=== PATIENT | female | born 1985 | race Two or more races ===

== ENCOUNTER 2017-09-04 18:27 | Emergency (ER) | payer SELFPAY ==
--- NOTE | 2017-09-04 19:55 | ER Document Report ---
HPI - HPI Pain Level: 5 Notes: Patient is a 32-year-old female with no significant past medical history presents to the ED complaining of left ear pain that radiates down into her left jaw and left neck on occasion 2-3 days. Patient states that her left ear hurts to touch as well. She has not noticed any purulent discharge. Patient states that she is still eating and drinking without difficulties. She is urinating normally and having normal bowel movements. She denies any drug allergies, smoking, or IV drug use. No other concerns or complaints at this time. Denies any headache, fever, head injury, neck pain, tinnitus, dizziness, URI, sore throat, chest pain, palpitations, syncope, cough, shortness of breath , wheeze, dyspnea, abdominal pain, nausea/vomiting/diarrhea, urinary retention, dysuria, hematuria, loss of control of bowel or bladder, numbness/tingling, saddle anesthesia, muscle paralysis/weakness, or rash. - ROS Systems Reviewed and Negative: Yes All other systems reviewed and negative Past Medical History - Social History Smoking Status: Unknown if Ever Smoked Chew tobacco use (# tins/day): No Frequency of alcohol use: Occasional Drug Abuse: None Family History: Reviewed & Not Pertinent Patient has suicidal ideation: No Patient has homicidal ideation: No Pulmonary Medical History: Reports: Hx Asthma Renal/ Medical History: Denies: Hx Peritoneal Dialysis Past Surgical History: Reports: Hx Orthopedic Surgery - right hand surgery - Immunizations Immunizations up to date: No Vertical Provider Document - CONSTITUTIONAL Agree With Documented VS: Yes Notes: PHYSICAL EXAMINATION: GENERAL: Well-appearing, well-nourished and in no acute distress. A&Ox4. Answers questions appropriately. Moves comfortably w/o notable distress HEAD: Atraumatic, normocephalic. EYES: Pupils equal round and reactive to light, extraocular movements intact, sclera anicteric, conjunctiva are normal. ENT: Lt EAC mildly erythemic and tender to palp. + tragus tenderness to palp. No mastroid tenderness or erythema/swelling. Rt EAC wnl. TM's intact b/l without erythema, fluid, or perforation. Nares patent and without discharge. oropharynx no erythema without exudates. No tonsilar hypertrophy without erythema or exudate. No palatine shift. Uvula midline. No tongue protrusion. No drooling, hoarseness, or airway compromise. Moist mucous membranes. No sinus tenderness. Mouth: no dental tenderness, abscess, or purulence. NECK: Normal range of motion, supple without lymphadenopathy. No rigidity/ meningismus. LUNGS: Breath sounds clear to auscultation bilaterally and equal. No wheezes rales or rhonchi. No retractions HEART: Regular rate and rhythm without murmurs, rubs, gallops. ABDOMEN: Soft, nontender, nondistended abdomen. No guarding, no rebound. No masses appreciated. Normal bowel sounds present. No CVA tenderness bilaterally. No hepatosplenomegaly. NEUROLOGICAL: Normal speech, normal gait. Normal sensory, motor exams PSYCH: Normal mood, normal affect. SKIN: Warm, Dry, normal turgor, no rashes or lesions noted. - INFECTION CONTROL TRAVEL OUTSIDE OF THE [place] IN LAST 30 DAYS: No Course - Re-evaluation Re-evalutation: 09/04/17 19:52 Patient is an afebrile, well-hydrated, 32-year-old female who presents to the ED with a mild acute otitis externa of the left ear and otalgia suspect component of eustachian tube dysfunction. Vitals are acceptable. PE is otherwise unremarkable. I will send her home with a prescription for antibiotic /steroid eardrops. Recommend conservative measures with use of Sudafed as well. Low suspicion for any meningitis, sepsis, peritonsillar/pharyngeal abscess, respiratory compromise, Maxim's, mastoiditis, or other emergent systemic condition at this time. Patient is aware this condition can change from initial presentation and she needs to monitor symptoms closely. Recheck with your PCM in 2-3 days. Return to the ED with any worsening/concerning symptoms otherwise as reviewed in discharge. Patient is in agreement. - Vital Signs Vital signs: Temp Pulse Resp BP Pulse Ox 98.5 F 72 16 126/79 H 97 09/04/17 18:36 09/04/17 18:36 09/04/17 18:36 09/04/17 18:36 09/04/17 18:36 Discharge - Discharge Clinical Impression: Otalgia of left ear Acute otitis externa of left ear Qualifiers: Otitis externa type: unspecified type Qualified Code(s): H60.502 - Unspecified acute noninfective otitis externa, left ear Eustachian tube dysfunction Qualifiers: Laterality: left Qualified Code(s): H69.82 - Other specified disorders of Eustachian tube, left ear Condition: Stable Disposition: HOME, SELF-CARE Instructions: Use of Ear Drops ([facility]), Otitis Externa ([facility]) Additional Instructions: Maintain adequate fluid intake Take meds as directed tylenol/ibuprofen as needed over the counter cold medication as needed for symptoms Wash your hands regularly Keep ears clean, avoid use of q-tips F/u: with your PCM in 2-3 days for a recheck Return to the ED with any fever, worsening pain, chest pain, palpitations, syncope, worsening VITAL, neck pain/stiffness, shortness of breath, wheezing, drooling, trouble swallowing/breathing, abdominal pain, n/v/d, rash, or worsening/concerning symptoms otherwise. Prescriptions: Neomy Sulf/Polymyx B Sulf/Hc [Bpvkgxmk-[id number]-Sf Ear Soln] 4 drop OT TID #1 bottle Forms: Elevated Blood Pressure Referrals: KKIA MONTEIRO DO [ASSOCIATE] - Follow up as needed
[2017-09-04 20:03] VITALS: BP 161/85
== END 2017-09-04 20:04 | disposition home or self-care (01) ==
LOC: ER 18:27
DX: H60.502 Unspecified acute noninfective otitis externa, left ear (principal); H69.82 Other specified disorders of Eustachian tube, left ear; H92.02 Otalgia, left ear; J45.909 Unspecified asthma, uncomplicated
CPT/HCPCS: 99282

== ENCOUNTER 2017-11-10 20:45 | Emergency (ER) | payer SELFPAY ==
[2017-11-10] MEDS ORDERED: BENZONATATE 100 MG CAPSULE PO ONE (22:43)
--- NOTE | 2017-11-10 22:45 | ER Document Report ---
ED General - General Stated Complaint: DIFFICULTY BREATHING Time Seen by Provider: 11/10/17 22:33 Notes: Patient is a 32-year-old female that comes emergency department for chief complaint of sore throat that started today, worsening cough, pain that is worsening over her frontal sinuses, and some congestion with bilateral ear pain. She denies fever. She has a history of asthma, she has been using her inhaler at home, she smokes. LMP within the past month. She denies any daily medications other than control. TRAVEL OUTSIDE OF THE [place] IN LAST 30 DAYS: No - Related Data Allergies/Adverse Reactions: No Known Allergies Allergy (Verified 09/21/12 18:42) Past Medical History - General Information source: Patient - Social History Smoking Status: Current Every Day Smoker Chew tobacco use (# tins/day): No Smoking Education Provided: Yes - <3 min Frequency of alcohol use: Occasional Drug Abuse: None Lives with: Family Family History: Reviewed & Not Pertinent Patient has suicidal ideation: No Patient has homicidal ideation: No Pulmonary Medical History: Reports: Hx Asthma Renal/ Medical History: Denies: Hx Peritoneal Dialysis Past Surgical History: Reports: Hx Orthopedic Surgery - right hand surgery - Immunizations Immunizations up to date: No Review of Systems - Review of Systems Constitutional: No symptoms reported EENT: See HPI Cardiovascular: No symptoms reported Respiratory: See HPI Gastrointestinal: No symptoms reported Genitourinary: No symptoms reported Female Genitourinary: No symptoms reported Musculoskeletal: No symptoms reported Skin: No symptoms reported Hematologic/Lymphatic: No symptoms reported Neurological/Psychological: No symptoms reported Physical Exam - Vital signs Vitals: Temp Pulse Resp BP Pulse Ox 97.7 F 87 18 132/78 H 100 11/10/17 20:54 11/10/17 20:54 11/10/17 20:54 11/10/17 20:54 11/10/17 20:54 Interpretation: Normal - General General appearance: Appears well In distress: None - HEENT Head: Normocephalic, Atraumatic Eyes: Normal Conjunctiva: Normal Extraocular movements intact: Yes Eyelashes: Normal Pupils: PERRL Sinus: Normal Nasal: Normal Mouth/Lips: Normal Mucous membranes: Normal Pharynx: Erythema. No: Exudate, Peritonsillar abscess, Uvular edema, Potential airway comprom. Neck: Anterior cervical chain - mild, bilateral - Respiratory Respiratory status: No respiratory distress. No: Respiratory distress, Tachypnea Chest status: Nontender Breath sounds: Nonproductive cough. No: Decreased air movement, Rales, Rhonchi , Wheezing Chest palpation: Normal - Cardiovascular Rhythm: Regular. No: Tachycardia Heart sounds: Normal auscultation, S1 appreciated, S2 appreciated Murmur: No - Abdominal Inspection: Normal Distension: No distension Bowel sounds: Normal Tenderness: Nontender. No: Tender, Guarding Organomegaly: No organomegaly - Back Back: Normal, Nontender - Extremities General upper extremity: Normal inspection, Nontender, Normal color, Normal ROM , Normal temperature General lower extremity: Normal inspection, Nontender, Normal color, Normal ROM , Normal temperature, Normal weight bearing. No: Romain's sign - Neurological Neuro grossly intact: Yes Cognition: Normal Orientation: AAOx4 Marlon Coma Scale Eye Opening: Spontaneous Marlon Coma Scale Verbal: Oriented [place] Coma Scale Motor: Obeys Commands [place] Coma Scale Total: 15 Speech: Normal Motor strength normal: LUE, RUE, LLE, RLE Sensory: Normal - Psychological Associated symptoms: Normal affect, Normal mood - Skin Skin Temperature: Warm Skin Moisture: Dry Skin Color: Normal Course - Re-evaluation Re-evalutation: Patient alert, well-appearing. She has frequent cough, erythematous pharynx, mild anterior cervical adenopathy, however she has clear lungs on auscultation, no hypoxia, no tachypnea. Chest x-ray unremarkable. Strep is negative. Patient reporting that she was wheezing earlier, not on exam, however because of anterior cervical adenopathy, sore throat, suspected viral URI and asthmatic smoker, patient was given dexamethasone after discussion and she declined prednisone. Discussed symptomatic treatment, patient requesting antibiotic for her sinuses, she does have some sinus tenderness but this is early onset, recommended that she wait at least several days before considering taking these and recommendation is to not take the altogether. Patient states that she does worsen she will be given antibiotics and follow-up with primary care. Discussed return precautions specifically as well. Discussed smoking cessation. Patient states understanding and agreement. - Vital Signs Vital signs: Temp Pulse Resp BP Pulse Ox 97.9 F 77 16 126/87 H 98 11/11/17 01:24 11/11/17 01:24 11/11/17 01:24 11/11/17 01:24 11/11/17 01:24 Discharge - Discharge Clinical Impression: Cough Sinusitis Qualifiers: Sinusitis location: unspecified location Chronicity: acute Recurrence: non- recurrent Qualified Code(s): J01.90 - Acute sinusitis, unspecified Pharyngitis Qualifiers: Pharyngitis/tonsillitis etiology: unspecified etiology Qualified Code(s): J02.9 - Acute pharyngitis, unspecified Condition: Stable Disposition: HOME, SELF-CARE Additional Instructions: Your strep test is negative, the chest x-ray is normal. This appears to be viral. Use the spacer with your inhaler. Because of your developing sinus pressure you have been prescribed Flonase and Sudafed, if this continues for about 1 week or you develop fever/increased pain then begin antibiotics and follow up with primary care. Return for any concerning symptoms including difficulty breathing, severe headache, difficulty swallowing, or any other concerning or worsening symptoms. Prescriptions: Amoxicillin Trihydrate [Amoxil 875 mg Tablet] 1 tab PO BID #20 tablet Fluticasone Propionate [Flonase Nasal Madison 50 Mcg/Madison 16 gm] 1 spray NASL Q12 #1 inhaler Pseudoephedrine HCl [Sudafed 12 Hour] 120 mg PO Q12H PRN #20 tablet.er PRN Reason: Forms: Return to Work, Treatment of Relative/Child
--- NOTE | 2017-11-10 23:45 | RADIOLOGY REPORT (SQ) ---
EXAM DESCRIPTION: XR CHEST 2 VIEWS CLINICAL HISTORY: 32 years Female, worsening cough, shortness of breath COMPARISON: None. FINDINGS: Adequate lung volume, clear parenchyma, normal cardiac silhouette, and intact bony thorax. IMPRESSION: No acute cardiopulmonary findings.
[2017-11-11] MEDS ORDERED: DEXAMETHASONE SOD PHOS INJ 10 MG/1 ML VIAL IM ONE (00:55)
[2017-11-11 01:35] VITALS: BP 126/87
== END 2017-11-11 01:35 | disposition home or self-care (01) ==
LOC: ER 20:45
DX: J01.90 Acute sinusitis, unspecified (principal); J02.9 Acute pharyngitis, unspecified; R06.00 Dyspnea, unspecified; H92.03 Otalgia, bilateral; F17.200 Nicotine dependence, unspecified, uncomplicated
CPT/HCPCS: 99284; 96372; 87070; 87880; 71046; J1100

== ENCOUNTER 2018-05-04 02:38 | Emergency (ER) | payer SELFPAY ==
[2018-05-04] MEDS ORDERED: DIAZEPAM 5 MG TABLET PO ONE (03:14)
--- NOTE | 2018-05-04 03:18 | ER Document Report ---
ED General - General Chief Complaint: Shortness Of Breath Stated Complaint: SHORTNESS OF BREATH Time Seen by Provider: 05/04/18 03:14 Notes: Patient is a 33-year-old female with a past medical history of asthma, and anxiety who presents with acute anxiety reaction. Patient states that she had an argument with a significant other on the phone, began to feel very upset and then began to hyperventilate and feel like she could not breathe. She states that she has had similar reactions in the past when she has had an anxiety attack and that this feels the same. She denies any chest pain, lightheadedness , syncope. Nothing has been tried to improve her symptoms since onset. She states that typically when she becomes stressed or emotionally upset it does trigger these episodes. No cough, fever or constitutional symptoms. TRAVEL OUTSIDE OF THE [place] IN LAST 30 DAYS: No - Related Data Allergies/Adverse Reactions: No Known Allergies Allergy (Verified 09/21/12 18:42) Past Medical History - General Information source: Patient, Relative - Social History Smoking Status: Never Smoker Frequency of alcohol use: Occasional Drug Abuse: None Lives with: Friend Family History: Reviewed & Not Pertinent Patient has suicidal ideation: No Patient has homicidal ideation: No Pulmonary Medical History: Reports: Hx Asthma Renal/ Medical History: Denies: Hx Peritoneal Dialysis Past Surgical History: Reports: Hx Orthopedic Surgery - right hand surgery - Immunizations Immunizations up to date: No Review of Systems - Review of Systems Notes: Constitutional: Negative for fever. HENT: Negative for sore throat. Eyes: Negative for visual changes. Cardiovascular: Negative for chest pain. Respiratory: Positive for shortness of breath. Gastrointestinal: Negative for abdominal pain, vomiting or diarrhea. Genitourinary: Negative for dysuria. Musculoskeletal: Negative for back pain. Skin: Negative for rash. Neurological: Negative for headaches, weakness or numbness. 10 point ROS negative except as marked above and in HPI. Physical Exam - Vital signs Vitals: Pulse Resp BP Pulse Ox 96 23 H 144/94 H 97 05/04/18 02:45 05/04/18 02:45 05/04/18 02:45 05/04/18 02:45 Interpretation: Normal Notes: PHYSICAL EXAMINATION: GENERAL: Appears anxious and in emotional distress HEAD: Atraumatic, normocephalic. EYES: Pupils equal round and reactive to light, extraocular movements intact, sclera anicteric, conjunctiva are normal. ENT: nares patent, oropharynx clear without exudates. Moist mucous membranes. NECK: Normal range of motion, supple without lymphadenopathy LUNGS: Hyperventilating, breath sounds clear to auscultation bilaterally and equal. No wheezes rales or rhonchi. HEART: Regular rate and rhythm without murmurs ABDOMEN: Soft, nontender, normoactive bowel sounds. No guarding, no rebound. No masses appreciated. EXTREMITIES: Normal range of motion, no pitting or edema. No cyanosis. NEUROLOGICAL: No focal neurological deficits. Moves all extremities spontaneously and on command. PSYCH: Anxious, tearful SKIN: Warm, Dry, normal turgor, no rashes or lesions noted. Course - Re-evaluation Re-evalutation: 05/04/18 03:18 Patient presents with history most consistent with an acute panic attack. The patient admits that these are symptoms identical to prior occasions of panic. There was a clear trigger for tonight's episode. Symptoms did resolve after receiving medical therapy here in the emergency department. Vitals otherwise within normal limits. I do not suspect an acute pulmonary embolus, ACS, pneumothorax, or any other acute left threatening pathology based on history and exam. I do not believe any labs or imaging are indicated at this time. At this time will discharge with return precautions and follow-up recommendations. Verbal discharge instructions given a the bedside and opportunity for questions given. Medication warnings reviewed. Patient is in agreement with this plan and has verbalized understanding of return precautions and the need for primary care follow-up in the next 24-72 hours. - Vital Signs Vital signs: Temp Pulse Resp BP Pulse Ox 96 23 H 144/94 H 97 05/04/18 02:45 05/04/18 02:45 05/04/18 02:45 05/04/18 02:45 Discharge - Discharge Clinical Impression: Panic attack, Shortness of breath Condition: Good Disposition: HOME, SELF-CARE Additional Instructions: You were seen today for a panic attack. Please return if you develop recurrance of your symptoms, thoughts of wanting to harm yourself, or any other symptoms that are concerning to you. Follow-up with your primary doctor or mental health provider regarding today's ED visit.
[2018-05-04 04:05] VITALS: BP 124/84
== END 2018-05-04 04:05 | disposition home or self-care (01) ==
LOC: ER 02:38
DX: F41.0 Panic disorder [episodic paroxysmal anxiety] (principal); J45.909 Unspecified asthma, uncomplicated
CPT/HCPCS: 99284

== ENCOUNTER 2018-05-25 21:59 | Emergency (ER) | payer SELFPAY ==
[2018-05-25 22:17] VITALS: BP 124/73
[2018-05-25 23:11] LABS: ABSOLUTE BASOPHILS # (AUTO) 0.1 10^3/uL (0.0-0.2); ABSOLUTE EOSINOPHILS # (AUTO) 0.4 10^3/uL (0.0-0.6); ABSOLUTE LYMPHOCYTES (AUTO) 3.8 10^3/uL (0.5-4.7); ABSOLUTE MONOCYTES (AUTO) 0.9 10^3/uL (0.1-1.4); ABSOLUTE NEUT (AUTO) 6.8 10^3/uL (1.7-8.2); BASOPHILS % (AUTO) 0.7 % (0-2); EOSINOPHILS % (AUTO) 3.1 % (0-6); HEMATOCRIT 37.1 % (36.0-47.0); HEMOGLOBIN 12.8 g/dL (12.0-15.5); MEAN CORPUSCULAR HEMOGLOBIN 31.5 pg (27.0-33.4); MEAN CORPUSCULAR HGB CONC 34.4 g/dL (32.0-36.0); MEAN CORPUSCULAR VOLUME 91 fl (80-97); MONOCYTES % (AUTO) 7.2 % (3-13); PLATELET COUNT 222 10^3/uL (150-450); RED BLOOD COUNT 4.06 10^6/uL (3.72-5.28); RED CELL DISTRIBUTION WIDTH 13.1 % (11.5-14.0); TOTAL CELLS COUNTED % (AUTO) 100 %; WHITE BLOOD COUNT 11.9 10^3/uL (4.0-10.5)
[2018-05-25 23:18] LABS: APPEARANCE,URINE CLEAR; BILIRUBIN,URINE NEGATIVE (NEGATIVE); COLOR,URINE AMBER; GLUCOSE, URINE NEGATIVE (NEGATIVE); KETONES,URINE NEGATIVE (NEGATIVE); LEUKOCYTE ESTERASE,URINE NEGATIVE (NEGATIVE); NITRITE,URINE POSITIVE (NEGATIVE); PROTEIN,URINE NEGATIVE (NEGATIVE); URINE SPECIFIC GRAVITY 1.018
[2018-05-25 23:25] LABS: ALANINE AMINOTRANSFERASE 22 U/L (9-52); ALKALINE PHOSPHATASE 43 U/L (38-126); ANION GAP 11 (5-19); ASPARTATE AMINO TRANSFERASE 20 U/L (14-36); BILIRUBIN,DIRECT 0.3 mg/dL (0.0-0.4); BILIRUBIN,TOTAL 0.4 mg/dL (0.2-1.3); BLOOD UREA NITROGEN 14 mg/dL (7-20); CALCIUM 9.1 mg/dL (8.4-10.2); CARBON DIOXIDE 25 mmol/L (22-30); CHLORIDE 106 mmol/L (98-107); GLUCOSE 92 mg/dL (75-110); LIPASE 90.4 U/L (23-300); POTASSIUM 4.3 mmol/L (3.6-5.0); SODIUM 141.7 mmol/L (137-145); TOTAL PROTEIN 7.1 g/dL (6.3-8.2)
[2018-05-26] MEDS ORDERED: KETOROLAC TROMETHAMINE 60 MG/2 ML SDV IM ONE (00:36)
[2018-05-26] MEDS ORDERED: LIDOCAINE 5% (700 MG) TRANSDERMAL ADH..PATCH TP ONE (00:36)
[2018-05-26] MEDS ORDERED: BENZONATATE 100 MG CAPSULE PO ONE (00:37)
--- NOTE | 2018-05-26 00:43 | ER Document Report ---
ED General - General Chief Complaint: Abdominal Pain Stated Complaint: ABDOMINAL PAIN RIGHT SIDE Time Seen by Provider: 05/25/18 22:45 Notes: Patient is a 33-year-old female without chronic medical problems, no prior abdominal surgical history who presents with approximately 5 days of right sided abdominal and lower rib pain. The patient states that she has had a persistent cough over the last 2 weeks. She states in the last 5 days each time she coughs, takes a deep breath or moves she has a stabbing, aching pain to her right lower ribs and the right side of her abdomen. She has not tried anything to improve the pain. She has not seen her general physician regarding today's concerns. She denies any associated shortness of breath, hemoptysis or unilateral leg swelling. No history of DVT or pulmonary embolus. Nothing seems to improve or worsen her symptoms. She has not had any associated nausea , vomiting or diarrhea. TRAVEL OUTSIDE OF THE [place] IN LAST 30 DAYS: No - Related Data Allergies/Adverse Reactions: No Known Allergies Allergy (Verified 09/21/12 18:42) Past Medical History - General Information source: Patient - Social History Smoking Status: Current Some Day Smoker Frequency of alcohol use: Occasional Drug Abuse: None Lives with: Family Family History: Reviewed & Not Pertinent Patient has suicidal ideation: No Patient has homicidal ideation: No Pulmonary Medical History: Reports: Hx Asthma Renal/ Medical History: Denies: Hx Peritoneal Dialysis Past Surgical History: Reports: Hx Orthopedic Surgery - right hand surgery - Immunizations Immunizations up to date: No Review of Systems - Review of Systems Notes: Constitutional: Negative for fever. HENT: Negative for sore throat. Eyes: Negative for visual changes. Cardiovascular: Negative for chest pain. Respiratory: Negative for shortness of breath. Gastrointestinal: Positive for right-sided abdominal discomfort Genitourinary: Negative for dysuria. Musculoskeletal: Positive for right lower rib pain Skin: Negative for rash. Neurological: Negative for headaches, weakness or numbness. 10 point ROS negative except as marked above and in HPI. Physical Exam - Vital signs Vitals: Temp Pulse Resp BP Pulse Ox 98.5 F 76 16 124/73 98 05/25/18 22:14 05/25/18 22:14 05/25/18 22:14 05/25/18 22:14 05/25/18 22:14 Interpretation: Normal Notes: PHYSICAL EXAMINATION: GENERAL: Well-appearing, well-nourished and in no acute distress. HEAD: Atraumatic, normocephalic. EYES: Pupils equal round and reactive to light, extraocular movements intact, sclera anicteric, conjunctiva are normal. ENT: nares patent, oropharynx clear without exudates. Moist mucous membranes. NECK: Normal range of motion, supple without lymphadenopathy LUNGS: Breath sounds clear to auscultation bilaterally and equal. No wheezes rales or rhonchi. HEART: Regular rate and rhythm without murmurs Chest wall: Pain on palpation of the right lower 3 ribs ABDOMEN: Soft, no focal abdominal tenderness to palpation, normoactive bowel sounds. No guarding, no rebound. No masses appreciated. EXTREMITIES: Normal range of motion, no pitting or edema. No cyanosis. NEUROLOGICAL: No focal neurological deficits. Moves all extremities spontaneously and on command. PSYCH: Normal mood, normal affect. SKIN: Warm, Dry, normal turgor, no rashes or lesions noted. Course - Re-evaluation Re-evalutation: 05/26/18 00:42 Patient presents with approximately 1 week of right sided pain worsened with coughing, moving and breathing. She localizes the pain to her right lower ribs and right flank. The pain is entirely reproducible on palpation. It is reproducible with movement, coughing and deep breathing. The patient states that her symptoms did start after having been coughing vigorously for the past 2 weeks likely secondary to a viral bronchitis. She notes that her coughing has been reducing now. Her abdominal exam is otherwise completely benign without any abdominal tenderness. Her labs otherwise unremarkable. Breath signs unremarkable. No clinical suspicion for a pneumonia or pneumothorax to indicate need for chest x-ray. I do not clinically suspect acute pulmonary embolus. Vitals are within normal limits. She is PERC criteria negative. At this time will discharge with return precautions and follow-up recommendations. Verbal discharge instructions given a the bedside and opportunity for questions given. Medication warnings reviewed. Patient is in agreement with this plan and has verbalized understanding of return precautions and the need for primary care follow-up in the next 24-72 hours. - Vital Signs Vital signs: Temp Pulse Resp BP Pulse Ox 98.5 F 76 16 124/73 98 05/25/18 22:14 05/25/18 22:14 05/25/18 22:14 05/25/18 22:14 05/25/18 22:14 - Laboratory Result Diagrams: 05/25/18 22:57 05/25/18 22:57 Laboratory results interpreted by me: 05/25/18 05/25/18 22:57 22:57 WBC 11.9 H Urine Nitrite POSITIVE H Urine Urobilinogen 4.0 H Discharge - Discharge Clinical Impression: Right sided abdominal pain, Lower rib pain Condition: Good Disposition: HOME, SELF-CARE Additional Instructions: Your chest wall pain is due to inflammation of the muscles along your right lower ribs. This pain can last for up to 6 weeks. It is very important that you continue to take purposeful deep breaths. For your pain: Continue to take ibuprofen 600 mg every 6 hours or Tylenol 1000 mg every 6 hours. Apply local lidocaine to the area per bottle instructions. There is a product sold over-the -counter called "Aspercreme with lidocaine" that you can use for this purpose. Please follow-up with her primary care doctor in the next 2-3 days. Return to the emergency department immediately if you develop worsening shortness of breath, increased pain, begin coughing blood, pass out, or have any other symptoms that are worrisome to you.
[2018-05-26] MEDS ORDERED: LIDOCAINE 5% (700 MG) TRANSDERMAL ADH..PATCH ONE (00:52)
== END 2018-05-26 01:07 | disposition home or self-care (01) ==
LOC: ER 21:59
DX: R10.9 Unspecified abdominal pain (principal); R07.81 Pleurodynia; F17.200 Nicotine dependence, unspecified, uncomplicated
CPT/HCPCS: 99284; 96372; 36415; 83690; 84703; 85025; 80053; 81001; J1885

== ENCOUNTER 2019-01-01 18:23 | Emergency (ER) | payer SELFPAY ==
[2019-01-01 18:36] VITALS: BP 151/90
--- NOTE | 2019-01-01 19:21 | ER Document Report ---
HPI - HPI Time Seen by Provider: 01/01/19 19:08 Pain Level: 2 Notes: Patient is a 33-year-old female presented to the emergency department chief complaint of right thumb pain. Patient reports yesterday she closed to the car door on her hand. She states she has tried taking Tylenol and ibuprofen without relief. She states that the pain radiates up into her hand, wrist and forearm. - REPRODUCTIVE Reproductive: DENIES: : Past Medical History - General Information source: Patient - Social History Smoking Status: Never Smoker Frequency of alcohol use: None Drug Abuse: None Family History: Reviewed & Not Pertinent Pulmonary Medical History: Reports: Hx Asthma Renal/ Medical History: Denies: Hx Peritoneal Dialysis Past Surgical History: Reports: Hx Orthopedic Surgery - right hand surgery - Immunizations Immunizations up to date: No Vertical Provider Document - CONSTITUTIONAL Notes: PHYSICAL EXAMINATION: GENERAL: Well-appearing, well-nourished and in no acute distress. HEAD: Atraumatic, normocephalic. EYES: Pupils equal round extraocular movements intact, conjunctiva are normal. ENT: Nares patent NECK: Normal range of motion LUNGS: No respiratory distress Musculoskeletal: Limited range of motion to right thumb, cap refill less than 3 seconds, normal sensation distal to injury, limited movement due to pain. NEUROLOGICAL: Normal speech, normal gait. PSYCH: Normal mood, normal affect. SKIN: Warm, Dry, normal turgor, no rashes or lesions noted. - INFECTION CONTROL TRAVEL OUTSIDE OF THE [place] IN LAST 30 DAYS: No Course - Re-evaluation Re-evalutation: Finger X-Ray 01/01/19 19:09 IMPRESSION: NO RADIOGRAPHIC EVIDENCE OF ACUTE INJURY. - Vital Signs Vital signs: Temp Pulse Resp BP Pulse Ox 98.3 F 76 18 151/90 H 97 01/01/19 18:35 01/01/19 18:35 01/01/19 18:35 01/01/19 18:35 01/01/19 18:35 Discharge - Discharge Clinical Impression: Thumb injury Qualifiers: Encounter type: initial encounter Laterality: right Qualified Code(s): S69.91XA - Unspecified injury of right wrist, hand and finger(s), initial encounter Condition: Stable Disposition: HOME, SELF-CARE Additional Instructions: Contusion Your injury has resulted in a contusion -- a crushing of the deep tissues. No injury to important structures was detected during the physician's exam. Contusions vary in the amount of pain they cause, and in the length of time required for healing. Typically, the area will become bruised, and will remain painful to touch for two or three weeks. However, most patients are back to working and playing within a few days. After the initial period of rest and cold-packs, your symptoms (together with the doctor's recommendations) will determine how rapidly you can get back to full activity. Usually this means "do what feels okay, but don't do things that hurt." If re-examination was recommended, it's important to follow up as instructed. Call the doctor or return any time if pain increases, if swelling becomes severe, if you develop numbness or weakness in an injured extremity, or if any other alarming symptoms occur. Ice & Elevation Apply ice packs frequently against the painful area. Many different schedules are recommended, such as "20 minutes on, 20 minutes off" or "one hour ice, two hours rest." If you need to work, you may need to go longer between ice treatments. You should plan to have the area ice packed AT LEAST one-fourth of the time. The ice should be applied over the wrap, tape, or splint, or over a layer of cloth -- not directly against the skin. Some ice bags have a built-in cloth and can be put directly on the skin. Your injured part should be elevated as much as possible over the next 48 hours. Try to keep the injury above the level of the heart. Avoid use of the injured area. Elevation and rest will decrease the swelling. Ibuprofen Ibuprofen is an excellent, safe drug for pain control. In addition, it has potent antiinflammatory effects which are beneficial, especially in the treatment of injuries, arthritis, or tendonitis. It's best to take ibuprofen with food. Persons with ulcer disease or allergy to aspirin should notify their physician of this before taking ibuprofen. Take the medication exactly as prescribed. Don't take additional doses unless instructed to do so by your doctor. If you develop wheezing, shortness of breath, hives, faintness, stomach pain, vomiting, or dark black stools, return for re-evaluation at once. The x-rays were negative for any fracture or dislocation. Please take ibuprofen [id number] as directed to help with pain and inflammation. Use the narcotic pain medication for severe pain only. Prescriptions: Hydrocodone Bit/Acetaminophen [Hydrocodon-Acetaminophen 5-325] 1 each PO Q4H #10 tablet Forms: Return to Work
--- NOTE | 2019-01-01 19:36 | RADIOLOGY REPORT (SQ) ---
EXAM DESCRIPTION: FINGER RIGHT COMPLETED DATE/TIME: 01/01/2019 7:28 pm REASON FOR STUDY: 1st digit COMPARISON: None. NUMBER OF VIEWS: Three views. TECHNIQUE: AP, lateral, and oblique images acquired of the right thumb. LIMITATIONS: None. FINDINGS: MINERALIZATION: Normal. BONES: No acute fracture or dislocation. No worrisome bone lesions. SOFT TISSUES: No soft tissue swelling. No foreign body. OTHER: No other significant finding. IMPRESSION: NO RADIOGRAPHIC EVIDENCE OF ACUTE INJURY. COMMENT: SITE OF TRAUMA/COMPLAINT MARKED/STAMP COMPLETED: YES. TECHNICAL DOCUMENTATION: JOB ID: [id number] [employer]- All Rights Reserved Reading location - IP/workstation name: [email or web address]
== END 2019-01-01 20:03 | disposition home or self-care (01) ==
LOC: ER 18:23
DX: S69.91XA Unspecified injury of right wrist, hand and finger(s), initial encounter (principal); M79.644 Pain in right finger(s); M79.641 Pain in right hand; M25.531 Pain in right wrist; M79.631 Pain in right forearm; W22.8XXA Striking against or struck by other objects, initial encounter; J45.909 Unspecified asthma, uncomplicated
CPT/HCPCS: 99283